=== PATIENT | male | born 1950 | race Caucasian/White ===

== ENCOUNTER 2017-12-12 15:26 | Emergency (ER) | payer OTHER, MEDICARE, BC ==
[2017-12-12 15:36] VITALS: BP 141/87
[2017-12-12] MEDS ORDERED: Diphtheria,Pertussis(Acell),Tetanus Vaccine 0.5 ML SDV IM ONE (16:04)
[2017-12-12] MEDS ORDERED: Lidocaine 1% 50 ML MDV INJECT ONE (16:04)
--- NOTE | 2017-12-12 16:46 | EDM.PDOC ---
ED HPI GENERAL MEDICAL PROBLEM - General Chief Complaint: General Stated Complaint: FALL, HEAD/KNEE INJURY Time Seen by Provider: 12/12/17 15:40 Source of Information: Reports: Patient, RN Notes Reviewed - History of Present Illness INITIAL COMMENTS - FREE TEXT/NARRATIVE: 67-year-old male tripped, they'll with resultant forehead laceration, contusion injury to his chest and contusion abrasion injury right knee. No LOC. Minimal headache at this time. There's been no nausea or vomiting. There was a fair amount of bleeding from the forehead laceration initially. He did mess up his glasses from a fall which probably caused the laceration. He does have anterior chest discomfort where he thinks the computer he was carrying a jammed against his chest. Pain was quite severe initially, now less bothersome but still present, worse with deep breathing. No abdominal pain no pelvic or hip discomfort. Mild right knee anterior discomfort. Chest Pain Score (Numeric/FACES): 8 - Related Data Allergies Allergy/AdvReac Type Severity Reaction Status Date / Time No Known Allergies Allergy Verified 12/12/17 15:35 Home Meds: Home Meds Insulin Isophane NPH, Human [NovoLIN N] 1 dose SUBCUT ASDIRECTED 12/12/17 [ History] Lisinopril 1 tab PO DAILY 12/12/17 [History] amLODIPine Besylate [Amlodipine Besylate] 1 tab PO DAILY 12/12/17 [History] glyBURIDE [Micronase] 1 tab PO DAILY 12/12/17 [History] metFORMIN HCl [Metformin HCl] 1 tab PO ASDIRECTED 12/12/17 [History] Past Medical History Cardiovascular History: Reports: Hypertension Endocrine/Metabolic History: Reports: Diabetes, Type II Social & Family History - Tobacco Use Smoking Status *Q: Never Smoker Second Hand Smoke Exposure: No - Caffeine Use Caffeine Use: Reports: Coffee, Soda - Recreational Drug Use Recreational Drug Use: No ED ROS GENERAL - Review of Systems Review Of Systems: See Below Constitutional: Reports: No Symptoms HEENT: Reports: Other (Laceration injury right for head). Denies: Vertigo, Vision Change Respiratory: Denies: Shortness of Breath Cardiovascular: Reports: Chest Pain (Worse with deep breathing) GI/Abdominal: Denies: Abdominal Pain, Nausea, Vomiting Musculoskeletal: Reports: Joint Pain (Right knee, mild) Skin: Reports: Other (Abrasion injury right knee) Neurological: Reports: Headache (Mild). Denies: Trouble Speaking, Difficulty Walking, Weakness ED EXAM, GENERAL - Physical Exam Exam: See Below General Appearance: Alert, No Apparent Distress Eye Exam: Bilateral Eye: PERRL Head: Facial Swelling (Area of contusion injury right eyebrow), Other (2 x 2 x 2 mm flap laceration just above right eyebrow, mildly gaping, moderately deep). No: Facial Tenderness Neck: Normal Inspection, Supple Respiratory/Chest: No Respiratory Distress, Lungs Clear Cardiovascular: Regular Rate, Rhythm Extremities: Other (Minimal tenderness right anterior knee, non-tender medially and laterally, good range of motion without discomfort, pelvis and hips nontender). No: Leg Pain Neurological: Alert, Oriented, No Motor/Sensory Deficits Skin Exam: Warm, Dry, Normal Color ED GENERAL MEDICAL PROCEDURES - Laceration/Wound Repair Right Forehead Lac/wound length in cm: 0.5 Appearance: Irregular (Flap configuration) Local Anesthesia - Lidocaine (Xylocaine): 1% Plain Skin Prep: Saline Suture Size: 4-0 # of Sutures: 1 Course - Vital Signs Last Recorded V/S: Last Vital Signs Temp 97.7 F 12/12/17 15:31 Pulse 77 12/12/17 15:31 Resp 18 12/12/17 15:31 BP 141/87 H 12/12/17 15:31 Pulse Ox 97 12/12/17 15:31 - Orders/Labs/Meds Orders: Active Orders 24 hr Category Date Time Status Vaccines to be Administered [RC] PER UNIT ROUTINE Care 12/12/17 16:04 Active Chest 1V Frontal [CR] Stat Exams 12/12/17 16:45 Taken Meds: Medications Discontinued Medications Generic Name Dose Route Start Last Admin Trade Name Freq PRN Reason Stop Dose Admin Diphtheria/Tetanus/Acell Pertussis 0.5 ml 12/12/17 16:04 12/12/17 16:16 Adacel IM 12/12/17 16:05 0.5 ml .ONCE ONE Administration Lidocaine HCl 50 ml 12/12/17 16:04 12/12/17 16:17 Xylocaine 1% INJECT 12/12/17 16:05 50 ml ONETIME ONE Administration - Re-Assessments/Exams Free Text/Narrative Re-Assessment/Exam: 12/12/17 17:43 Chest x-ray looks good, knee x-rays not clinically indicated, head CT not clinically indicated. Departure - Departure Time of Disposition: 17:04 Disposition: Home, Self-Care 01 Condition: Fair Clinical Impression: Fall Qualifiers: Encounter type: initial encounter Qualified Code(s): W19.XXXA - Unspecified fall, initial encounter Forehead laceration Qualifiers: Encounter type: initial encounter Qualified Code(s): S01.81XA - Laceration without foreign body of other part of head, initial encounter Knee contusion Qualifiers: Encounter type: initial encounter Laterality: right Qualified Code(s): S80.01XA - Contusion of right knee, initial encounter Chest wall contusion Qualifiers: Encounter type: initial encounter Laterality: unspecified laterality Qualified Code(s): S20.219A - Contusion of unspecified front wall of thorax, initial encounter - Discharge Information Instructions: Laceration Care, Adult, Contusion, [id number] Referrals: Raheel Vieyra Jr, MD [Primary Care Provider] - Forms: ED Department Discharge, ED Return to Work/School Form Additional Instructions: Laceration care instructions, the stitch placed for your forehead laceration should be removed in 8 days, there is no charge if you choose to have that taken out under [facility] medical clinic. Tylenol 2-3 times daily as needed for discomfort, you may take an occasional Aleve if you need something in addition for severe discomfort not relieved by Tylenol. Follow-up clinic as needed if symptoms not resolving over the next 3-5 days as expected, return to ED as needed if symptoms worsening in any way. - My Orders Last 24 Hours: My Active Orders 12/12/17 16:04 Vaccines to be Administered [RC] PER UNIT ROUTINE 12/12/17 16:45 Chest 1V Frontal [CR] Stat - Assessment/Plan Last 24 Hours: My Active Orders 12/12/17 16:04 Vaccines to be Administered [RC] PER UNIT ROUTINE 12/12/17 16:45 Chest 1V Frontal [CR] Stat
--- NOTE | 2017-12-13 10:22 | CR ---
Chest: Portable view of the chest was obtained. Comparison: Prior chest CT of 12/07/15 is available, no previous chest x-ray. Heart size and mediastinum are within normal limits for portable technique. Lungs are clear with no acute parenchymal densities. Bony structures are grossly intact. Impression: 1. Nothing acute is seen on portable chest x-ray. Diagnostic code #1
== END 2017-12-12 17:20 | disposition home or self-care (01) ==
LOC: JD.ED 15:26
DX: S01.81XA Laceration without foreign body of other part of head, initial encounter (principal); S80.01XA Contusion of right knee, initial encounter; S20.219A Contusion of unspecified front wall of thorax, initial encounter; Z23 Encounter for immunization; E11.9 Type 2 diabetes mellitus without complications; I10 Essential (primary) hypertension; Z79.4 Long term (current) use of insulin; W01.0XXA Fall on same level from slipping, tripping and stumbling without subsequent striking against object, initial encounter
CPT/HCPCS: 12011; 71045; 71045-26; 90471; 90715; 99283-25; 99284-25

== ENCOUNTER 2018-10-28 10:37 | Observation (INO) | payer MEDICARE, BC ==
--- NOTE | 2018-10-28 10:51 | EDM.PDOC ---
ED HPI GENERAL MEDICAL PROBLEM - General Chief Complaint: Neurological Problem Stated Complaint: POSSIBLE STROKE Time Seen by Provider: 10/28/18 10:41 - History of Present Illness INITIAL COMMENTS - FREE TEXT/NARRATIVE: 68-year-old male presents with right-sided weakness. This started roughly an hour ago his daughter noticed that the right side of his lips were drooping perhaps a little more than normal. Patient's agreed he has not had any change in speech or swallowing difficulties. The patient has had an upper respiratory tract infection from of last week on going and has a frequent cough with this and he's getting some abdominal and chest discomfort associated with the cough otherwise he has no chest pain or abdominal pain. After was pointed out that his right lips were a little more droopy than normal he thought maybe he had some right sided extremity weakness but this has resolved prior to him arriving here. 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 His back problems have caused him to have back surgeries and he may have some resultant neuropathy from this but it is felt he is at baseline at this time. The patient does suffer type 2 diabetes that he uses insulin for. He has a strong family history of CVAs some relatives have had strokes in their 50s. The patient has no prior history of smoking. Again is confirmed with the patient that he is having some mild right sided drooping of his lips no other residual symptoms at this time. Patient is left-hand dominant. - Related Data Allergies Allergy/AdvReac Type Severity Reaction Status Date / Time No Known Allergies Allergy Verified 10/28/18 11:04 Home Meds: Home Meds Insulin Isophane NPH, Human [NovoLIN N] 1 dose SUBCUT ASDIRECTED 12/12/17 [ History] Lisinopril 40 mg PO DAILY 12/12/17 [History] amLODIPine Besylate [Amlodipine Besylate] 10 mg PO DAILY 12/12/17 [History] glyBURIDE [Micronase] 5 mg PO DAILY 12/12/17 [History] metFORMIN HCl [Metformin HCl] 500 mg PO BID 12/12/17 [History] Clobetasol [Temovate 0.05% Oint] 1 applic TOP BID 10/28/18 [History] Terbinafine HCl [Terbinafine] 250 mg PO DAILY 10/28/18 [History] atorvaSTATin [Lipitor] 20 mg PO DAILY 10/28/18 [History] Past Medical History Cardiovascular History: Reports: Hypertension Endocrine/Metabolic History: Reports: Diabetes, Type II Social & Family History - Caffeine Use Caffeine Use: Reports: Coffee, Soda ED ROS GENERAL - Review of Systems Review Of Systems: See Below Constitutional: Denies: Fever, Chills HEENT: Reports: Other (Right-sided facial weakness affecting his lips) Respiratory: Reports: Cough, Sputum. Denies: Shortness of Breath, Wheezing, Pleuritic Chest Pain Cardiovascular: Reports: Other (Chest pain only with cough) Endocrine: Reports: High Glucose GI/Abdominal: Reports: No Symptoms, Other (Some abdominal wall discomfort with his cough) : Reports: No Symptoms Musculoskeletal: Reports: Other (Neck back and leg pain as well as arthritis affecting his upper extremities) Neurological: Reports: Other (Possible right-sided deficit) Psychiatric: Reports: No Symptoms Hematologic/Lymphatic: Reports: No Symptoms Immunologic: Reports: No Symptoms ED EXAM, NEURO - Physical Exam Exam: See Below Exam Limited By: No Limitations General Appearance: Alert, No Apparent Distress Eye Exam: Bilateral Eye: Normal Inspection, PERRL Ears: Normal External Exam, Normal Canal, Hearing Grossly Normal, Normal TMs Nose: Normal Inspection, Normal Mucosa, No Blood Throat/Mouth: Normal Inspection, Normal Lips, Normal Teeth, Normal Gums, Normal Oropharynx, Normal Voice, No Airway Compromise Head Exam: Atraumatic, Normocephalic, Other (He has a little bit of drooping of the lips on the right this is very subtle compared to the left patient's and daughter are certain this is new) Neck: Normal Inspection, Supple. No: Carotid Bruit, Lymphadenopathy (L), Lymphadenopathy (R) Respiratory/Chest: No Respiratory Distress, Lungs Clear, Normal Breath Sounds Cardiovascular: Regular Rate, Rhythm, No Edema, No Murmur GI/Abdominal: Normal Bowel Sounds, Soft, Non-Tender, Other (Obese). No: Distended, Guarding, Rigid, Rebound, Tender Neurological: Other (Cranial nerves II through XII grossly intact all muscle groups the upper and lower extremities are equal and appropriate bilaterally he might be a little bit stronger in his right arm compared to his left however he seems to have worsening arthritis in his left compared to his right) Back Exam: Normal Inspection. No: CVA Tenderness (L), CVA Tenderness (R) Extremities: Other (He is wearing orthopedic shoes on his feet this is for chronic ankle problems that of left to some deformity) Psychiatric: Normal Affect (.), Normal Mood Skin Exam: Warm, Dry, Intact EKG INTERPRETATION EKG Date: 10/28/18 Rhythm: NSR Rydal: Other (Leftward axis) P-Wave: Present QRS: RBBB ST-T: Normal QT: Normal Comparison: NA - No Prior EKG Course - Vital Signs Last Recorded V/S: Last Vital Signs Temp 36.6 C 10/28/18 10:40 Pulse 80 10/28/18 10:40 Resp 20 10/28/18 10:40 BP 137/82 10/28/18 10:40 Pulse Ox 95 10/28/18 10:40 - Orders/Labs/Meds Orders: Active Orders 24 hr Category Date Time Status EKG Documentation Completion [RC] STAT Care 10/28/18 11:00 Active URINALYSIS W/MICROSCOPIC [UA W/MICROSCOPIC] [URIN] Stat Lab 10/28/18 11:01 Ordered Sodium Chloride 0.9% [Normal Saline] 1,000 ml Med 10/28/18 12:00 Active IV ASDIRECTED Sodium Chloride 0.9% [Normal Saline] 100 ml Med 10/28/18 12:30 Active IV ASDIRECTED Sodium Chloride 0.9% [Saline Flush] Med 10/28/18 12:25 Active 10 ml FLUSH ONETIME PRN Medication Orders Sodium Chloride (Normal Saline) 1,000 mls @ 125 mls/hr IV ASDIRECTED DARA Sodium Chloride (Normal Saline) 100 mls @ 75 mls/hr IV ASDIRECTED DARA Last Admin: 10/28/18 13:50 Dose: 75 mls/hr Sodium Chloride (Saline Flush) 10 ml FLUSH ONETIME PRN PRN Reason: IV FLUSH Last Admin: 10/28/18 13:49 Dose: 10 ml Labs: Laboratory Tests 10/28/18 10/28/18 10/28/18 Range/Units 10:48 10:48 10:48 WBC 5.76 (4.23-9.07) K/mm3 RBC 4.59 L (4.63-6.08) M/mm3 Hgb 12.6 L D (13.7-17.5) gm/L Hct 38.4 L (40.1-51.0) % MCV 83.7 (79.0-92.2) fl MCH 27.5 (25.7-32.2) pg MCHC 32.8 (32.2-35.5) g/dl RDW Std Deviation 42.0 (35.1-43.9) fL Plt Count 239 (163-337) K/mm3 MPV 10.7 (9.4-12.3) fl Neutrophils % (Manual) 69 H (40-60) % Band Neutrophils % 0 (0-10) % Lymphocytes % (Manual) 19 L (20-40) % Atypical Lymphs % 0 % Monocytes % (Manual) 6 (2-10) % Eosinophils % (Manual) 6 (0.8-7.0) % Basophils % (Manual) 0 L (0.2-1.2) Platelet Estimate Adequate RBC Morph Comment Normal ESR (0-15) mm/hr PT 11.1 (9.5-12.1) SECONDS INR 1.02 APTT 28 (24-31) SECONDS Sodium 135 L (136-145) mEq/L Potassium 4.9 (3.5-5.1) mEq/L Chloride 101 (98-107) mEq/L Carbon Dioxide 26 (21-32) mEq/L Anion Gap 12.9 (5-15) BUN 19 H (7-18) mg/dL Creatinine 1.4 H (0.7-1.3) mg/dL Est Cr Clr Drug Dosing 53.89 mL/min Estimated GFR (MDRD) 50 (>60) mL/min BUN/Creatinine Ratio 13.6 L (14-18) Glucose 402 H (80-115) mg/dL Calcium 9.1 (8.5-10.1) mg/dL Total Bilirubin 0.5 (0.2-1.0) mg/dL AST 24 (15-37) U/L ALT 33 (16-63) U/L Alkaline Phosphatase 96 (46-116) U/L Troponin I < 0.017 (0.00-0.056) ng/mL C-Reactive Protein 0.7 (<1.0) mg/dL Total Protein 8.0 (6.4-8.2) g/dl Albumin 3.6 (3.4-5.0) g/dl Globulin 4.4 gm/dL Albumin/Globulin Ratio 0.8 L (1-2) 10/28/18 Range/Units 10:48 WBC (4.23-9.07) K/mm3 RBC (4.63-6.08) M/mm3 Hgb (13.7-17.5) gm/L Hct (40.1-51.0) % MCV (79.0-92.2) fl MCH (25.7-32.2) pg MCHC (32.2-35.5) g/dl RDW Std Deviation (35.1-43.9) fL Plt Count (163-337) K/mm3 MPV (9.4-12.3) fl Neutrophils % (Manual) (40-60) % Band Neutrophils % (0-10) % Lymphocytes % (Manual) (20-40) % Atypical Lymphs % % Monocytes % (Manual) (2-10) % Eosinophils % (Manual) (0.8-7.0) % Basophils % (Manual) (0.2-1.2) Platelet Estimate RBC Morph Comment ESR 34 H (0-15) mm/hr PT (9.5-12.1) SECONDS INR APTT (24-31) SECONDS Sodium (136-145) mEq/L Potassium (3.5-5.1) mEq/L Chloride (98-107) mEq/L Carbon Dioxide (21-32) mEq/L Anion Gap (5-15) BUN (7-18) mg/dL Creatinine (0.7-1.3) mg/dL Est Cr Clr Drug Dosing mL/min Estimated GFR (MDRD) (>60) mL/min BUN/Creatinine Ratio (14-18) Glucose (80-115) mg/dL Calcium (8.5-10.1) mg/dL Total Bilirubin (0.2-1.0) mg/dL AST (15-37) U/L ALT (16-63) U/L Alkaline Phosphatase (46-116) U/L Troponin I (0.00-0.056) ng/mL C-Reactive Protein (<1.0) mg/dL Total Protein (6.4-8.2) g/dl Albumin (3.4-5.0) g/dl Globulin gm/dL Albumin/Globulin Ratio (1-2) Meds: Medications Generic Name Dose Route Start Last Admin Trade Name Freq PRN Reason Stop Dose Admin Sodium Chloride 1,000 mls @ 125 mls/hr 10/28/18 12:00 Normal Saline IV ASDIRECTED DARA Sodium Chloride 100 mls @ 75 mls/hr 10/28/18 12:30 10/28/18 13:50 Normal Saline IV 75 mls/hr ASDIRECTED DARA Administration Sodium Chloride 10 ml 10/28/18 12:25 10/28/18 13:49 Saline Flush FLUSH 10 ml ONETIME PRN Administration IV FLUSH Discontinued Medications Generic Name Dose Route Start Last Admin Trade Name Naelq PRN Reason Stop Dose Admin Aspirin 324 mg 10/28/18 11:17 10/28/18 11:22 Aspirin PO 10/28/18 11:18 324 mg ONETIME ONE Administration Sodium Chloride 500 mls @ 999 mls/hr 10/28/18 12:00 10/28/18 12:09 Normal Saline IV 10/28/18 12:30 999 mls/hr .BOLUS ONE Administration Iohexol 100 ml 10/28/18 12:26 10/28/18 13:49 Omnipaque-300 IVPUSH 10/28/18 12:27 100 ml ONETIME ONE Administration - Re-Assessments/Exams Free Text/Narrative Re-Assessment/Exam: 10/28/18 11:[address] 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. He agrees he is not a thrombolytic candidate. He should have an echo CTA in addition to the usual workup EKG shows a sinus rhythm. Discussed potential treatment options with the patient and his family. 10/28/18 14:24 The patient received IV fluids to buffer his kidneys from contrast he received a CTA of the head and neck which shows 80-90% focal stenosis in the distal right vertebral artery. Patient will be placed on observation started on antiplatelet therapy receive brain MRI cardiac echo and cardiac monitoring. His metformin will need to be held. Departure - Departure Time of Disposition: 14:01 Disposition: Refer to Observation Clinical Impression: Transient ischemic attack (TIA) - Discharge Information Referrals: Raheel Vieyra Jr, MD [Primary Care Provider] - Forms: ED Department Discharge - My Orders Last 24 Hours: My Active Orders 10/28/18 11:00 EKG Documentation Completion [RC] STAT 10/28/18 11:01 URINALYSIS W/MICROSCOPIC [UA W/MICROSCOPIC] [URIN] Stat 10/28/18 12:00 Sodium Chloride 0.9% [Normal Saline] 1,000 ml IV ASDIRECTED 10/28/18 12:25 Sodium Chloride 0.9% [Saline Flush] 10 ml FLUSH ONETIME PRN 10/28/18 12:30 Sodium Chloride 0.9% [Normal Saline] 100 ml IV ASDIRECTED - Assessment/Plan Last 24 Hours: My Active Orders 10/28/18 11:00 EKG Documentation Completion [RC] STAT 10/28/18 11:01 URINALYSIS W/MICROSCOPIC [UA W/MICROSCOPIC] [URIN] Stat 10/28/18 12:00 Sodium Chloride 0.9% [Normal Saline] 1,000 ml IV ASDIRECTED 10/28/18 12:25 Sodium Chloride 0.9% [Saline Flush] 10 ml FLUSH ONETIME PRN 10/28/18 12:30 Sodium Chloride 0.9% [Normal Saline] 100 ml IV ASDIRECTED
[2018-10-28] MEDS ORDERED: Aspirin 81 MG Tab.Chew PO ONE (11:17)
--- NOTE | 2018-10-28 11:43 | CR ---
Chest: Two views of the chest were obtained. Comparison: Previous chest x-ray of 12/12/17. Heart size is normal. Tortuous thoracic aorta is seen. Lungs are clear with no acute parenchymal change. Minimal scarring is seen within the left lung base. Bony structures show scattered degenerative endplate spurring within the spine. Impression: 1. Incidental findings. Nothing acute is seen. Diagnostic code #2
[2018-10-28] MEDS ORDERED: Sodium Chloride 0.9% 1,000 ML IV SCH (12:00)
[2018-10-28] MEDS ORDERED: Sodium Chloride 0.9% 500 ML IV ONE (12:00)
[2018-10-28] MEDS ORDERED: Sodium Chloride 0.9% 10 ML Syringe FLUSH PRN ×2 (12:25→16:54)
[2018-10-28] MEDS ORDERED: Iohexol 647 MG/ML 100 ML Bottle IVPUSH ONE (12:26)
[2018-10-28] MEDS ORDERED: Sodium Chloride 0.9% 100 ML IV SCH (12:30)
--- NOTE | 2018-10-28 12:45 | CT ---
Head CT Technique: Multiple axial sections through the brain were obtained. Intravenous contrast was not utilized. Comparison: No prior intracranial imaging. Findings: Ventricles along with basal cisterns and sulci over the convexities are mildly prominent. Minimal diminished density is noted within the periventricular white matter which is compatible with small vessel ischemic demyelination change. No other abnormal parenchymal densities are seen. No evidence of intracranial hemorrhage. No midline shift or mass effect is seen. Bone window settings were reviewed which show no acute calvarial abnormality. Minimal areas of mucosal thickening are seen within the maxillary sinuses which is incidental. Widening of the sella turcica is seen most likely due to so- called empty sella. Impression: 1. Senescent change and other incidental findings. 2. Nothing acute is appreciated. If patient's symptoms warrant further evaluation, MRI could then be considered. Diagnostic code #2 MTDD
--- NOTE | 2018-10-28 14:16 | CT ---
CT angiogram of neck Technique: Multiple axial sections through the neck were obtained. Intravenous contrast was utilized in the arterial phase. Multiple MIP images were obtained. Findings: Two focal areas of severe stenosis are noted within the distal right vertebral artery. These measure in the range of 80-90%. Left vertebral artery is widely patent without focal stenosis. Other portions of the vertebral arteries appear normal. Common carotid artery showed no stenosis on either side. Carotid bulb shows no significant stenosis. Internal carotid artery showed no focal stenosis. Visualized external carotid arteries are within normal limits. Impression: 1. Two areas of severe stenosis within the distal right vertebral artery. 2. No additional abnormality is identified on CT study of the neck. Diagnostic code #3
--- NOTE | 2018-10-28 14:16 | CT ---
CT angiogram of brain Technique: Focal stenosis is noted within the distal right vertebral artery measuring about 80-90%. Distal left vertebral artery is widely patent. Basilar artery and posterior cerebral arteries appear intact without focal stenosis. Carotid siphons appear intact. Middle cerebral arteries show minimal stenosis within the distal right MCA. Left MCA shows no focal stenosis. Anterior cerebral artery shows no focal stenosis. Impression: 1. Focal stenosis within the distal right vertebral artery measuring 80-90%. 2. Minimal stenosis within the distal right middle cerebral artery. 3. No additional abnormality is seen on CT angiogram study centered to the [place] of [place]. Diagnostic code #3
--- NOTE | 2018-10-28 14:52 | PCM.HP ---
H&P History of Present Illness - General Date of Service: 10/28/18 Admit Problem/Dx: Admission Diagnosis/Problem Admission Diagnosis/Problem TIA, Transient ischemic attack - History of Present Illness Initial Comments - Free Text/Narative: 68 yo WM with h/o DM, HTN, dyslipidemia, strong family h/o early strokes admitted with acute onset of right facial motor deficit, which gradually resolved while in ED. CT angiogram showed significant stenoses in major arteries : vertebral and carotid, started on DAPT, admitted for observation to further risk stratify and treat. - Related Data Allergies/Adverse Reactions: Allergies Allergy/AdvReac Type Severity Reaction Status Date / Time No Known Allergies Allergy Verified 10/28/18 11:04 Home Medications: Home Meds Insulin Isophane NPH, Human [NovoLIN N] 1 dose SUBCUT ASDIRECTED 12/12/17 [ History] Lisinopril 40 mg PO DAILY 12/12/17 [History] amLODIPine Besylate [Amlodipine Besylate] 10 mg PO DAILY 12/12/17 [History] glyBURIDE [Micronase] 5 mg PO DAILY 12/12/17 [History] metFORMIN HCl [Metformin HCl] 500 mg PO BID 12/12/17 [History] Clobetasol [Temovate 0.05% Oint] 1 applic TOP BID 10/28/18 [History] Terbinafine HCl [Terbinafine] 250 mg PO DAILY 10/28/18 [History] atorvaSTATin [Lipitor] 20 mg PO DAILY 10/28/18 [History] Past Medical History Cardiovascular History: Reports: Hypertension Endocrine/Metabolic History: Reports: Diabetes, Type II Social & Family History - Tobacco Use Smoking Status *Q: Unknown Ever Smoked - Caffeine Use Caffeine Use: Reports: Coffee, Soda H&P Review of Systems - Review of Systems: Review Of Systems: See Below General: Reports: Chills. Denies: Fever, Weight Loss HEENT: Reports: Sinus Congestion. Denies: Dysphasia, Vertigo Pulmonary: Reports: Cough. Denies: Shortness of Breath, Wheezing Cardiovascular: Reports: Orthopnea, Blood Pressure Problem. Denies: Chest Pain , Palpitations, Syncope Gastrointestinal: Denies: Abdominal Pain, Anorexia, Diarrhea, Difficulty Swallowing, Nausea, Vomiting Genitourinary: Denies: Dysuria Skin: Denies: Cyanosis, Jaundice, Bruising Psychiatric: Denies: Confusion, Depression, Anxiety, Suicidal Ideation Neurological: Denies: Seizure, Syncope Hematologic/Lymphatic: Denies: Easy Bleeding, Easy Bruising Exam - Exam Exam: See Below - Vital Signs Vital Signs: Last Vital Signs Temp 97.9 F 10/28/18 10:40 Pulse 80 10/28/18 10:40 Resp 20 10/28/18 10:40 BP 137/82 10/28/18 10:40 Pulse Ox 95 10/28/18 10:40 Weight: 275 lb - Exam Quality Assessment: No: Supplemental Oxygen General: Alert, Oriented, Cooperative HEENT: Conjunctiva Clear, EOMI, Hearing Intact, Pupils Equal Neck: Supple, Trachea Midline. No: JVD Lungs: Clear to Auscultation, Normal Respiratory Effort, Crackles. No: Decreased Breath Sounds Cardiovascular: Regular Rate, Regular Rhythm, Normal S1, Normal S2. No: Gallop/ S3 GI/Abdominal Exam: Normal Bowel Sounds, Soft, Non-Tender, No Distention Extremities: Non-Tender, Pedal Edema, Other (congenital bilateral feet deformities.) Peripheral Pulses: 2+: Posterior Tibial (L), Posterior Tibial (R) Skin: Warm, Dry Neurological: Cranial Nerves Intact Neuro Extensive - Mental Status: Alert, Oriented x3 Neuro Extensive - Motor, Sensory, Reflexes: CN II-XII Intact. No: Tongue Deviation (L), Tongue Deviation (R), Dysarthria, Facial palsy (L), Facial Palsy (R) Psychiatric: Normal Affect, Normal Mood. No: Suicidal Ideation - Patient Data Lab Results Last 24 hrs: Laboratory Results - last 24 hr 10/28/18 10/28/18 10/28/18 Range/Units 10:48 10:48 10:48 WBC 5.76 (4.23-9.07) K/mm3 RBC 4.59 L (4.63-6.08) M/mm3 Hgb 12.6 L D (13.7-17.5) gm/L Hct 38.4 L (40.1-51.0) % MCV 83.7 (79.0-92.2) fl MCH 27.5 (25.7-32.2) pg MCHC 32.8 (32.2-35.5) g/dl RDW Std Deviation 42.0 (35.1-43.9) fL Plt Count 239 (163-337) K/mm3 MPV 10.7 (9.4-12.3) fl Neutrophils % (Manual) 69 H (40-60) % Band Neutrophils % 0 (0-10) % Lymphocytes % (Manual) 19 L (20-40) % Atypical Lymphs % 0 % Monocytes % (Manual) 6 (2-10) % Eosinophils % (Manual) 6 (0.8-7.0) % Basophils % (Manual) 0 L (0.2-1.2) Platelet Estimate Adequate RBC Morph Comment Normal ESR (0-15) mm/hr PT 11.1 (9.5-12.1) SECONDS INR 1.02 APTT 28 (24-31) SECONDS Sodium 135 L (136-145) mEq/L Potassium 4.9 (3.5-5.1) mEq/L Chloride 101 (98-107) mEq/L Carbon Dioxide 26 (21-32) mEq/L Anion Gap 12.9 (5-15) BUN 19 H (7-18) mg/dL Creatinine 1.4 H (0.7-1.3) mg/dL Est Cr Clr Drug Dosing 53.89 mL/min Estimated GFR (MDRD) 50 (>60) mL/min BUN/Creatinine Ratio 13.6 L (14-18) Glucose 402 H (80-115) mg/dL Calcium 9.1 (8.5-10.1) mg/dL Total Bilirubin 0.5 (0.2-1.0) mg/dL AST 24 (15-37) U/L ALT 33 (16-63) U/L Alkaline Phosphatase 96 (46-116) U/L Troponin I < 0.017 (0.00-0.056) ng/mL C-Reactive Protein 0.7 (<1.0) mg/dL Total Protein 8.0 (6.4-8.2) g/dl Albumin 3.6 (3.4-5.0) g/dl Globulin 4.4 gm/dL Albumin/Globulin Ratio 0.8 L (1-2) // Range/Units 10:48 WBC (4.23-9.07) K/mm3 RBC (4.63-6.08) M/mm3 Hgb (13.7-17.5) gm/L Hct (40.1-51.0) % MCV (79.0-92.2) fl MCH (25.7-32.2) pg MCHC (32.2-35.5) g/dl RDW Std Deviation (35.1-43.9) fL Plt Count (163-337) K/mm3 MPV (9.4-12.3) fl Neutrophils % (Manual) (40-60) % Band Neutrophils % (0-10) % Lymphocytes % (Manual) (20-40) % Atypical Lymphs % % Monocytes % (Manual) (2-10) % Eosinophils % (Manual) (0.8-7.0) % Basophils % (Manual) (0.2-1.2) Platelet Estimate RBC Morph Comment ESR 34 H (0-15) mm/hr PT (9.5-12.1) SECONDS INR APTT (24-31) SECONDS Sodium (136-145) mEq/L Potassium (3.5-5.1) mEq/L Chloride (98-107) mEq/L Carbon Dioxide (21-32) mEq/L Anion Gap (5-15) BUN (7-18) mg/dL Creatinine (0.7-1.3) mg/dL Est Cr Clr Drug Dosing mL/min Estimated GFR (MDRD) (>60) mL/min BUN/Creatinine Ratio (14-18) Glucose (80-115) mg/dL Calcium (8.5-10.1) mg/dL Total Bilirubin (0.2-1.0) mg/dL AST (15-37) U/L ALT (16-63) U/L Alkaline Phosphatase (46-116) U/L Troponin I (0.00-0.056) ng/mL C-Reactive Protein (<1.0) mg/dL Total Protein (6.4-8.2) g/dl Albumin (3.4-5.0) g/dl Globulin gm/dL Albumin/Globulin Ratio (1-2) Result Diagrams: 10/28/18 10:48 10/28/18 10:48 - Problem List (1) TIA (transient ischemic attack) SNOMED Code(s): 422448636 ICD Code: G45.9 - TRANSIENT CEREBRAL ISCHEMIC ATTACK, UNSPECIFIED Status: Acute Priority: High Current Visit: Yes (2) Diabetes mellitus SNOMED Code(s): 44969709 ICD Code: E11.9 - TYPE 2 DIABETES MELLITUS WITHOUT COMPLICATIONS Status: Acute Priority: High Current Visit: Yes Qualifiers: Diabetes mellitus type: type 2 Diabetes mellitus skilled nursing insulin use: with skilled nursing use Diabetes mellitus complication status: with unspecified complications Qualified Code(s): E11.8 - Type 2 diabetes mellitus with unspecified complications; Z79.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 (3) Essential hypertension SNOMED Code(s): 97612647 ICD Code: I10 - ESSENTIAL (PRIMARY) HYPERTENSION Status: Acute Priority: High Current Visit: Yes Problem List Initiated/Reviewed/Updated: Yes Orders Last 24hrs: Active Orders 24 hr Category Date Time Status Patient Status [ADT] Routine ADT 10/28/18 14:35 Active EKG Documentation Completion [RC] STAT Care 10/28/18 11:00 Active Height and Weight [RC] DAILY Care 10/28/18 14:35 Active Oxygen Therapy [RC] PRN Care 10/28/18 14:35 Active Up With Assistance [RC] ASDIRECTED Care 10/28/18 14:35 Active VTE/DVT Education [RC] PER UNIT ROUTINE Care 10/28/18 14:35 Active Vital Signs [RC] Q4H Care 10/28/18 14:35 Active Heart Healthy Diet [DIET] Diet 10/28/18 Dinner Active Brain wo Cont [MR] Routine Exams 10/28/18 14:46 Ordered Carotid Comp [US] Routine Exams 10/28/18 14:43 Ordered Echo Comp wo Cont [US] Routine Exams 10/28/18 14:44 Ordered CBC WITH AUTO DIFF [HEME] AM Lab 10/29/18 05:11 Ordered COMPREHENSIVE METABOLIC PN,CMP [CHEM] AM Lab 10/29/18 05:11 Ordered CREATINE KINASE,CK [CHEM] AM Lab 10/29/18 05:11 Ordered GLYCOSYLATED HEMOGLOBIN,HGBA1C [CHEM] AM Lab 10/29/18 05:11 Ordered INR,PT,PROTHROMBIN TIME [COAG] AM Lab 10/29/18 05:11 Ordered LIPID PANEL [CHEM] AM Lab 10/29/18 05:11 Ordered MAGNESIUM [CHEM] AM Lab 10/29/18 05:00 Ordered PHOSPHORUS [CHEM] AM Lab 10/29/18 05:00 Ordered PTT,PARTIAL THROMBOPLSTIN TIME [COAG] AM Lab 10/29/18 05:11 Ordered TROPONIN I [CHEM] AM Lab 10/29/18 05:11 Ordered URINALYSIS W/MICROSCOPIC [UA W/MICROSCOPIC] [URIN] Stat Lab 10/28/18 11:01 Ordered Aspirin Med 10/29/18 09:00 Active 162 mg PO DAILY Clopidogrel [Plavix] Med 10/28/18 14:45 Active 75 mg PO DAILY Enoxaparin [Lovenox] Med 10/28/18 15:30 Active 40 mg SUBCUT Q24H Insulin Lispro [HumaLOG] Med 10/28/18 17:00 Active See Protocol SUBCUT QIDACANDBED Lisinopril [Prinivil] Med 10/29/18 09:00 Active 40 mg PO DAILY Simvastatin [Zocor] Med 10/29/18 09:00 Active 20 mg PO DAILY Sodium Chloride 0.9% [Normal Saline] 1,000 ml Med 10/28/18 12:00 Active IV ASDIRECTED Sodium Chloride 0.9% [Normal Saline] 100 ml Med 10/28/18 12:30 Active IV ASDIRECTED Sodium Chloride 0.9% [Saline Flush] Med 10/28/18 12:25 Active 10 ml FLUSH ONETIME PRN amLODIPine [Norvasc] Med 10/29/18 09:00 Active 10 mg PO DAILY Resuscitation Status Routine Resus Stat 10/28/18 14:35 Ordered Medication Orders Amlodipine Besylate (Norvasc) 10 mg PO DAILY [facility] Aspirin (Aspirin) 162 mg PO DAILY [facility] Clopidogrel Bisulfate (Plavix) 75 mg PO DAILY [facility] Enoxaparin Sodium (Lovenox) 40 mg SUBCUT Q24H [facility]ARA Sodium Chloride (Normal Saline) 1,000 mls @ 125 mls/hr IV ASDIRECTED DARA Sodium Chloride (Normal Saline) 100 mls @ 75 mls/hr IV ASDIRECTED DARA Last Admin: 10/28/18 13:50 Dose: 75 mls/hr Insulin Human Lispro (Humalog) 0 unit SUBCUT QIDACANDBED DARA; Protocol Lisinopril (Prinivil) 40 mg PO DAILY [facility]ARA Simvastatin (Zocor) 20 mg PO DAILY [facility] Sodium Chloride (Saline Flush) 10 ml FLUSH ONETIME PRN PRN Reason: IV FLUSH Last Admin: 10/28/18 13:49 Dose: 10 ml Assessment/Plan Comment:: 1. MRI, 2D ECHO. 2. Lipid panel, HbA1C 3. started dual antiplatelet therapy(ASA, clopidogrel) 4. DVTP - LMWH
[2018-10-28] MEDS ORDERED: Enoxaparin 40 MG/0.4 ML Syringe SUBCUT SCH (15:30)
[2018-10-28] MEDS: Clopidogrel 75 MG Tab PO SCH (17:22)
[2018-10-28] MEDS: Insulin Lispro 100 Units/ML 3 ML Vial SUBCUT SCH ×2 (17:23→21:45)
[2018-10-29 07:01] LABS: HEMOGLOBIN A1C 9.2 % (4.50-6.20)
[2018-10-29] MEDS: Insulin Lispro 100 Units/ML 3 ML Vial SUBCUT SCH ×2 (08:02→10:57)
[2018-10-29] MEDS: Clopidogrel 75 MG Tab PO SCH (08:12)
--- NOTE | 2018-10-29 08:28 | US ---
Carotid ultrasound: Multiple real-time images were obtained. Plaque: No plaque is seen. Comparison: No prior carotid ultrasound, prior neck CT angiogram of 10/28/18. Findings: Velocity measurements: Right side: CCA has a peak systolic velocity of 0.68 m/s. ICA has a peak systolic velocity of 0.71 m/s and peak end-diastolic velocity of 0.26 m/s. ECA has a peak systolic velocity of 0.64 m/s. Vertebral artery has a peak systolic velocity of 0.72 m/s. ICA/CCA ratio is 1.0. Left side: CCA has a peak systolic velocity of 0.71 m/s. ICA has a peak systolic velocity of 0.62 m/s and peak end-diastolic velocity of 0.22 m/s. ECA has a peak systolic velocity of 0.46 m/s. Vertebral artery has a peak systolic velocity of 0.55 m/s. ICA/CCA ratio is 0.9. Impression: 1. Normal carotid ultrasound. Note: Distal right vertebral artery stenosis seen on CT angiogram study is too distal to be visualized by this study. Diagnostic code #1 I agree with preliminary report from [facility], finalized on 10/28/18, 6:07 PM Central Time
--- NOTE | 2018-10-29 08:50 | MR ---
MRI brain Technique: T1 sagittal; T2, T1, T2 FLAIR, T2 gradient echo and diffusion; T1 and T2 gradient echo coronal. Comparison: Prior head CT exam at 10/28/18. Findings: Normal signal void is seen within the major cerebral arteries within the skull base. Enlarged sella turcica is seen believed to represent so-called empty sella as an incidental note. Ventricles along with basal cisterns and sulci over the convexities are mildly prominent. Mild areas of scattered increased signal are seen within the periventricular and subcortical white matter compatible with small vessel ischemic demyelination change. No other abnormal signal is seen within the brain parenchyma. No acute diffusion abnormalities are seen. No midline shift or mass effect is seen. Impression: 1. Senescent changes and other incidental finding. 2. No acute diffusion abnormalities are identified. Diagnostic code #2 I agree with preliminary report from [facility], finalized on 10/28/18, 5:04 PM Central Time
[2018-10-29] MEDS ORDERED: amLODIPine 10 MG Tab PO SCH (09:00)
[2018-10-29] MEDS ORDERED: Aspirin 81 MG Tab.Chew PO SCH (09:00)
[2018-10-29] MEDS ORDERED: Lisinopril 20 MG Tab PO SCH (09:00)
[2018-10-29] MEDS ORDERED: ATORVASTATIN 20 MG PO SCH (09:00)
[2018-10-29] MEDS ORDERED: AMLODIPINE 10 MG PO SCH (09:00)
[2018-10-29] MEDS ORDERED: amLODIPine 5 MG Tab PO SCH (09:00)
[2018-10-29] MEDS ORDERED: LISINOPRIL 40 MG PO SCH (09:00)
[2018-10-29] MEDS ORDERED: Simvastatin 20 MG Tab PO SCH (09:00)
[2018-10-29] MEDS ORDERED: Non-Formulary Medication 1 Each (Magnesium Citrate [Magnesium Citrate] 100 MG) PO SCH (09:15)
[2018-10-29] MEDS ORDERED: Magnesium Sulfate/Water 4 GM in Premix Bag 1 BAG IV ONE (09:30)
[2018-10-29 12:41] VITALS: BP 133/62
--- NOTE | 2018-10-29 15:02 | PCM.DCSUM1 ---
Discharge Summary - Hospital Course HPI Initial Comments: 68 yo WM with h/o DM, HTN, dyslipidemia, strong family h/o early strokes admitted with acute onset of right facial motor deficit, which gradually resolved while in ED. CT angiogram showed significant stenoses in major arteries : vertebral and carotid, started on DAPT, admitted for observation to further risk stratify and treat. Brief History: patient had an uneventful 24 hours and had full resolution of his right-sided weakness. Patient was evaluated by physical therapy and occupational therapy. He had an ultrasound of his heart arteries which showed no velocity abnormalities. Echocardiogram is still pending. MRI of the brain was negative for acute findings. Diagnosis: Stroke: No - Discharge Data Discharge Date: 10/29/18 Discharge Disposition: Home, Self-Care 01 Condition: Good - Patient Summary/Data Consults: Consultations 10/29/18 07:40 OT Evaluation and Treatment [CONS] Routine PT Evaluation and Treatment [CONS] Routine - Discharge Plan *PRESCRIPTION DRUG MONITORING PROGRAM REVIEWED*: Not Applicable *COPY OF PRESCRIPTION DRUG MONITORING REPORT IN PATIENT ZOEY: Not Applicable Prescriptions/Med Rec: Clopidogrel [Plavix] 75 mg PO DAILY #30 tablet Home Medications: Home Meds Insulin Isophane NPH, Human [NovoLIN N] 25 unit SUBCUT BIDMEALS 12/12/17 [ History] Lisinopril 40 mg PO DAILY 12/12/17 [History] amLODIPine Besylate [Amlodipine Besylate] 5 mg PO DAILY 12/12/17 [History] glyBURIDE [Micronase] 10 mg PO ACBREAKFAST 12/12/17 [History] metFORMIN HCl [Metformin HCl] 500 mg PO BID 12/12/17 [History] Ceramides 1,3,6-11 [Cerave] 340 gm TP BID 10/28/18 [History] Cider Vinegar [Apple Cider Vinegar] 300 mg PO DAILY 10/28/18 [History] Cinnamon Bark [Cinnamon] 500 mg PO DAILY 10/28/18 [History] Clobetasol [Temovate 0.05% Oint] 1 applic TOP BID 10/28/18 [History] Folic Acid 1 mg PO DAILY 10/28/18 [History] Magnesium Citrate 0 mg PO DAILY 10/28/18 [History] Metoprolol Tartrate 50 mg PO DAILY 10/28/18 [History] Niacin 500 mg PO DAILY 10/28/18 [History] Omeprazole 20 mg PO DAILY 10/28/18 [History] [place] 1,000 mg PO DAILY 10/28/18 [History] atorvaSTATin [Lipitor] 20 mg PO DAILY 10/28/18 [History] glyBURIDE [Glyburide] 5 mg PO ACDINNER 10/28/18 [History] Aspirin 162 mg PO DAILY tab.chew 10/29/18 [Rx] Clopidogrel [Plavix] 75 mg PO DAILY #30 tablet 10/29/18 [Rx] Patient Handouts: Stroke Prevention, Transient Ischemic Attack, [id number], Warning Signs of a Stroke Referrals: Raheel Vieyra Jr, MD [Primary Care Provider] - 11/03/18 2:00 pm (Please follow up with Dr. Vieyra on SatNovember 05 at 2pm.) - Discharge Summary/Plan Comment DC Time >30 min.: Yes Discharge Summary/Plan Comment: patient had complete resolution of his right-sided weakness. 68 yo WM with h/o DM, HTN, dyslipidemia, strong family h/o early strokes admitted with acute onset of right facial motor deficit, which gradually resolved while in ED. CT angiogram showed significant stenoses in major arteries : vertebral and carotid, started on DAPT, admitted for observation to further risk stratify and treat. CT angiogram of the head: 1. Focal stenosis within the distal right vertebral artery measuring 80-90%. 2. Minimal stenosis within the distal right middle cerebral artery. MRI brain: No acute diffusion abnormality identified. Senescent changes and other incidental findings. Echocardiogram pending Carotid ultrasound normal. continue tight blood pressure control. Improve Blood sugar control. Hemoglobin A1c was 9.0 discharged on dual antiplatelet therapy: aspirin 162 mg daily and Plavix 75 mg daily. Follow-up with primary care provider in one week. - General Info Date of Service: 10/29/18 Admission Dx/Problem (Free Text: Admission Diagnosis/Problem Admission Diagnosis/Problem TIA, Transient ischemic attack Subjective Update: patient had no changes overnight. He did well and has completely recovered from his right-sided weakness. CT angiogram did show severe stenosis of the right vertebral arteries. I discussed with him following up with vascular surgery. - Review of Systems General: Reports: No Symptoms. Denies: Fever, Weakness HEENT: Reports: No Symptoms Pulmonary: Reports: No Symptoms. Denies: Shortness of Breath, Pleuritic Chest Pain Cardiovascular: Reports: No Symptoms. Denies: Chest Pain, Palpitations Gastrointestinal: Reports: No Symptoms. Denies: Abdominal Pain Genitourinary: Reports: No Symptoms. Denies: Dysuria, Frequency Musculoskeletal: Reports: No Symptoms. Denies: Neck Pain, Shoulder Pain Neurological: Reports: No Symptoms. Denies: Confusion, Dizziness, Numbness, Paresthesia, Seizure, Difficulty Walking, Weakness, Change in Speech, Gait Disturbance Psychiatric: Reports: No Symptoms - Patient Data Vitals - Most Recent: Last Vital Signs Temp 97.4 F 10/29/18 08:00 Pulse 87 10/29/18 11:25 Resp 16 10/29/18 11:25 BP 133/62 10/29/18 11:25 Pulse Ox 95 10/29/18 11:25 Weight - Most Recent: 266 lb I&O - Last 24 hours: Intake & Output 10/29/18 10/29/18 10/29/18 06:59 14:59 22:59 Intake Total 400 480 Output Total 1350 Balance -950 480 Lab Results - Last 24 hrs: Laboratory Results - last 24 hr 10/28/18 10/28/18 10/28/18 Range/Units 14:45 17:03 20:50 WBC (4.23-9.07) K/mm3 RBC (4.63-6.08) M/mm3 Hgb (13.7-17.5) gm/L Hct (40.1-51.0) % MCV (79.0-92.2) fl MCH (25.7-32.2) pg MCHC (32.2-35.5) g/dl RDW Std Deviation (35.1-43.9) fL Plt Count (163-337) K/mm3 MPV (9.4-12.3) fl Neut % (Auto) (34.0-67.9) % Lymph % (Auto) (21.8-53.1) % [place] % (Auto) (5.3-12.2) % Eos % (Auto) (0.8-7.0) Baso % (Auto) (0.1-1.2) % Neut # (Auto) (1.78-5.38) K/mm3 Lymph # (Auto) (1.32-3.57) K/mm3 [place] # (Auto) (0.30-0.82) K/mm3 Eos # (Auto) (0.04-0.54) K/mm3 Baso # (Auto) (0.01-0.08) K/mm3 PT (9.5-12.1) SECONDS INR APTT (24-31) SECONDS Sodium (136-145) mEq/L Potassium (3.5-5.1) mEq/L Chloride (98-107) mEq/L Carbon Dioxide (21-32) mEq/L Anion Gap (5-15) BUN (7-18) mg/dL Creatinine (0.7-1.3) mg/dL Est Cr Clr Drug Dosing mL/min Estimated GFR (MDRD) (>60) mL/min BUN/Creatinine Ratio (14-18) Glucose (80-115) mg/dL POC Glucose 287 H 226 H (80-115) mg/dL Hemoglobin A1c (4.50-6.20) % Calcium (8.5-10.1) mg/dL Phosphorus (2.6-4.7) mg/dL Magnesium (1.8-2.4) mg/dl Total Bilirubin (0.2-1.0) mg/dL AST (15-37) U/L ALT (16-63) U/L Alkaline Phosphatase (46-116) U/L Creatine Kinase (39-308) U/L Troponin I (0.00-0.056) ng/mL Total Protein (6.4-8.2) g/dl Albumin (3.4-5.0) g/dl Globulin gm/dL Albumin/Globulin Ratio (1-2) Triglycerides (<150) mg/dL Cholesterol (<200) mg/dL LDL Cholesterol Direct (<100) mg/dL HDL Cholesterol (40-59) mg/dL Urine Color Light yellow (Yellow) Urine Appearance Clear (Clear) Urine pH 5.5 (5.0-8.0) Ur Specific [place] 1.015 (1.005-1.030) Urine Protein Negative (Negative) Urine Glucose (UA) 2+ H (Negative) Urine Ketones Negative (Negative) Urine Occult Blood Negative (Negative) Urine Nitrite Negative (Negative) Urine Bilirubin Negative (Negative) Urine Urobilinogen 0.2 (0.2-1.0) Ur Leukocyte Esterase Negative (Negative) Urine RBC Not seen (0-5) /hpf Urine WBC 0-5 (0-5) /hpf Ur Squamous Epith Cells Not seen (0-5) /hpf Urine Bacteria Not seen (FEW) /hpf Urine Mucus Not seen (FEW) /hpf 10/29/18 10/29/18 10/29/18 Range/Units 05:38 05:39 05:39 WBC 5.62 (4.23-9.07) K/mm3 RBC 4.15 L (4.63-6.08) M/mm3 Hgb 11.5 L (13.7-17.5) gm/L Hct 35.5 L (40.1-51.0) % MCV 85.5 (79.0-92.2) fl MCH 27.7 (25.7-32.2) pg MCHC 32.4 (32.2-35.5) g/dl RDW Std Deviation 42.0 (35.1-43.9) fL Plt Count 179 (163-337) K/mm3 MPV 10.8 (9.4-12.3) fl Neut % (Auto) 56.8 (34.0-67.9) % Lymph % (Auto) 24.7 (21.8-53.1) % [place] % (Auto) 12.8 H (5.3-12.2) % Eos % (Auto) 5.0 (0.8-7.0) Baso % (Auto) 0.5 (0.1-1.2) % Neut # (Auto) 3.19 (1.78-5.38) K/mm3 Lymph # (Auto) 1.39 (1.32-3.57) K/mm3 [place] # (Auto) 0.72 (0.30-0.82) K/mm3 Eos # (Auto) 0.28 (0.04-0.54) K/mm3 Baso # (Auto) 0.03 (0.01-0.08) K/mm3 PT (9.5-12.1) SECONDS INR APTT (24-31) SECONDS Sodium (136-145) mEq/L Potassium (3.5-5.1) mEq/L Chloride (98-107) mEq/L Carbon Dioxide (21-32) mEq/L Anion Gap (5-15) BUN (7-18) mg/dL Creatinine (0.7-1.3) mg/dL Est Cr Clr Drug Dosing mL/min Estimated GFR (MDRD) (>60) mL/min BUN/Creatinine Ratio (14-18) Glucose (80-115) mg/dL POC Glucose 262 H (80-115) mg/dL Hemoglobin A1c (4.50-6.20) % Calcium (8.5-10.1) mg/dL Phosphorus 4.2 (2.6-4.7) mg/dL Magnesium 1.4 L (1.8-2.4) mg/dl Total Bilirubin (0.2-1.0) mg/dL AST (15-37) U/L ALT (16-63) U/L Alkaline Phosphatase (46-116) U/L Creatine Kinase (39-308) U/L Troponin I (0.00-0.056) ng/mL Total Protein (6.4-8.2) g/dl Albumin (3.4-5.0) g/dl Globulin gm/dL Albumin/Globulin Ratio (1-2) Triglycerides (<150) mg/dL Cholesterol (<200) mg/dL LDL Cholesterol Direct (<100) mg/dL HDL Cholesterol (40-59) mg/dL Urine Color (Yellow) Urine Appearance (Clear) Urine pH (5.0-8.0) Ur Specific [place] (1.005-1.030) Urine Protein (Negative) Urine Glucose (UA) (Negative) Urine Ketones (Negative) Urine Occult Blood (Negative) Urine Nitrite (Negative) Urine Bilirubin (Negative) Urine Urobilinogen (0.2-1.0) Ur Leukocyte Esterase (Negative) Urine RBC (0-5) /hpf Urine WBC (0-5) /hpf Ur Squamous Epith Cells (0-5) /hpf Urine Bacteria (FEW) /hpf Urine Mucus (FEW) /hpf 10/29/18 10/29/18 10/29/18 Range/Units 05:39 05:39 05:39 WBC (4.23-9.07) K/mm3 RBC (4.63-6.08) M/mm3 Hgb (13.7-17.5) gm/L Hct (40.1-51.0) % MCV (79.0-92.2) fl MCH (25.7-32.2) pg MCHC (32.2-35.5) g/dl RDW Std Deviation (35.1-43.9) fL Plt Count (163-337) K/mm3 MPV (9.4-12.3) fl Neut % (Auto) (34.0-67.9) % Lymph % (Auto) (21.8-53.1) % [place] % (Auto) (5.3-12.2) % Eos % (Auto) (0.8-7.0) Baso % (Auto) (0.1-1.2) % Neut # (Auto) (1.78-5.38) K/mm3 Lymph # (Auto) (1.32-3.57) K/mm3 [place] # (Auto) (0.30-0.82) K/mm3 Eos # (Auto) (0.04-0.54) K/mm3 Baso # (Auto) (0.01-0.08) K/mm3 PT 10.9 (9.5-12.1) SECONDS INR 1.00 APTT 29 (24-31) SECONDS Sodium 136 (136-145) mEq/L Potassium 4.8 (3.5-5.1) mEq/L Chloride 102 (98-107) mEq/L Carbon Dioxide 29 (21-32) mEq/L Anion Gap 9.8 (5-15) BUN 21 H (7-18) mg/dL Creatinine 1.3 (0.7-1.3) mg/dL Est Cr Clr Drug Dosing 58.03 mL/min Estimated GFR (MDRD) 55 (>60) mL/min BUN/Creatinine Ratio 16.2 (14-18) Glucose 241 H (80-115) mg/dL POC Glucose (80-115) mg/dL Hemoglobin A1c 9.20 H (4.50-6.20) % Calcium 8.7 (8.5-10.1) mg/dL Phosphorus (2.6-4.7) mg/dL Magnesium (1.8-2.4) mg/dl Total Bilirubin 0.5 (0.2-1.0) mg/dL AST 23 (15-37) U/L ALT 32 (16-63) U/L Alkaline Phosphatase 81 (46-116) U/L Creatine Kinase 348 H (39-308) U/L Troponin I < 0.017 (0.00-0.056) ng/mL Total Protein 7.2 (6.4-8.2) g/dl Albumin 3.2 L (3.4-5.0) g/dl Globulin 4.0 gm/dL Albumin/Globulin Ratio 0.8 L (1-2) Triglycerides 210 H (<150) mg/dL Cholesterol 120 (<200) mg/dL LDL Cholesterol Direct 73 (<100) mg/dL HDL Cholesterol 22.0 L (40-59) mg/dL Urine Color (Yellow) Urine Appearance (Clear) Urine pH (5.0-8.0) Ur Specific [place] (1.005-1.030) Urine Protein (Negative) Urine Glucose (UA) (Negative) Urine Ketones (Negative) Urine Occult Blood (Negative) Urine Nitrite (Negative) Urine Bilirubin (Negative) Urine Urobilinogen (0.2-1.0) Ur Leukocyte Esterase (Negative) Urine RBC (0-5) /hpf Urine WBC (0-5) /hpf Ur Squamous Epith Cells (0-5) /hpf Urine Bacteria (FEW) /hpf Urine Mucus (FEW) /hpf 10/29/18 Range/Units 10:47 WBC (4.23-9.07) K/mm3 RBC (4.63-6.08) M/mm3 Hgb (13.7-17.5) gm/L Hct (40.1-51.0) % MCV (79.0-92.2) fl MCH (25.7-32.2) pg MCHC (32.2-35.5) g/dl RDW Std Deviation (35.1-43.9) fL Plt Count (163-337) K/mm3 MPV (9.4-12.3) fl Neut % (Auto) (34.0-67.9) % Lymph % (Auto) (21.8-53.1) % [place] % (Auto) (5.3-12.2) % Eos % (Auto) (0.8-7.0) Baso % (Auto) (0.1-1.2) % Neut # (Auto) (1.78-5.38) K/mm3 Lymph # (Auto) (1.32-3.57) K/mm3 [place] # (Auto) (0.30-0.82) K/mm3 Eos # (Auto) (0.04-0.54) K/mm3 Baso # (Auto) (0.01-0.08) K/mm3 PT (9.5-12.1) SECONDS INR APTT (24-31) SECONDS Sodium (136-145) mEq/L Potassium (3.5-5.1) mEq/L Chloride (98-107) mEq/L Carbon Dioxide (21-32) mEq/L Anion Gap (5-15) BUN (7-18) mg/dL Creatinine (0.7-1.3) mg/dL Est Cr Clr Drug Dosing mL/min Estimated GFR (MDRD) (>60) mL/min BUN/Creatinine Ratio (14-18) Glucose (80-115) mg/dL POC Glucose 293 H (80-115) mg/dL Hemoglobin A1c (4.50-6.20) % Calcium (8.5-10.1) mg/dL Phosphorus (2.6-4.7) mg/dL Magnesium (1.8-2.4) mg/dl Total Bilirubin (0.2-1.0) mg/dL AST (15-37) U/L ALT (16-63) U/L Alkaline Phosphatase (46-116) U/L Creatine Kinase (39-308) U/L Troponin I (0.00-0.056) ng/mL Total Protein (6.4-8.2) g/dl Albumin (3.4-5.0) g/dl Globulin gm/dL Albumin/Globulin Ratio (1-2) Triglycerides (<150) mg/dL Cholesterol (<200) mg/dL LDL Cholesterol Direct (<100) mg/dL HDL Cholesterol (40-59) mg/dL Urine Color (Yellow) Urine Appearance (Clear) Urine pH (5.0-8.0) Ur Specific [place] (1.005-1.030) Urine Protein (Negative) Urine Glucose (UA) (Negative) Urine Ketones (Negative) Urine Occult Blood (Negative) Urine Nitrite (Negative) Urine Bilirubin (Negative) Urine Urobilinogen (0.2-1.0) Ur Leukocyte Esterase (Negative) Urine RBC (0-5) /hpf Urine WBC (0-5) /hpf Ur Squamous Epith Cells (0-5) /hpf Urine Bacteria (FEW) /hpf Urine Mucus (FEW) /hpf Med Orders - Current: Current Medications Aspirin (Aspirin) 162 mg PO DAILY [facility] Last Admin: 10/29/18 08:07 Dose: 162 mg Clopidogrel Bisulfate (Plavix) 75 mg PO DAILY [facility] Last Admin: 10/29/18 08:12 Dose: 75 mg Enoxaparin Sodium (Lovenox) 40 mg SUBCUT Q24H [facility] Last Admin: 10/28/18 17:23 Dose: 40 mg Folic Acid (Folic Acid) 1 mg PO DAILY [facility] Insulin Human Lispro (Humalog) 0 unit SUBCUT QIDACANDBED [facility]; Protocol Last Admin: 10/29/18 10:57 Dose: 6 units Patient Own (Lisinopril 40 Mg) 0 each PO DAILY [facility] Last Admin: 10/29/18 08:08 Dose: 1 each Patients Own (Amlodipine 10mg) 0 each PO DAILY [facility] Last Admin: 10/29/18 08:08 Dose: 0.5 each Patients Own (Atorvastatin 20mg) 0 each PO DAILY [facility] Last Admin: 10/29/18 08:09 Dose: 1 each Non-Formulary Medication (Ceramides 1,3,6-11 [Cerave]) 340 gm TP BID [facility] Non-Formulary Medication (Magnesium Citrate [Magnesium Citrate]) 100 mg PO DAILY [facility] Non-Formulary Medication (Omeprazole [Omeprazole]) 20 mg PO DAILY [facility] Sodium Chloride (Saline Flush) 10 ml FLUSH ASDIRECTED PRN PRN Reason: Keep Vein Open Discontinued Medications Amlodipine Besylate (Norvasc) 10 mg PO DAILY [facility] Amlodipine Besylate (Norvasc) 5 mg PO DAILY [facility] Aspirin (Aspirin) 324 mg PO ONETIME ONE Stop: 10/28/18 11:18 Last Admin: 10/28/18 11:22 Dose: 324 mg Sodium Chloride (Normal Saline) 500 mls @ 999 mls/hr IV .BOLUS ONE Stop: 10/28/18 12:30 Last Admin: 10/28/18 12:09 Dose: 999 mls/hr Sodium Chloride (Normal Saline) 1,000 mls @ 125 mls/hr IV ASDIRECTED [facility] Sodium Chloride (Normal Saline) 100 mls @ 75 mls/hr IV ASDIRECTED [facility] Last Admin: 10/28/18 13:50 Dose: 75 mls/hr Magnesium Sulfate 4 gm/ Premix 50 mls @ 12.5 mls/hr IV ONETIME ONE Stop: 10/29/18 13:29 Last Admin: 10/29/18 09:34 Dose: 12.5 mls/hr Iohexol (Omnipaque-300) 100 ml IVPUSH ONETIME ONE Stop: 10/28/18 12:27 Last Admin: 10/28/18 13:49 Dose: 100 ml Lisinopril (Prinivil) 40 mg PO DAILY [facility] Simvastatin (Zocor) 20 mg PO DAILY [facility] Sodium Chloride (Saline Flush) 10 ml FLUSH ONETIME PRN PRN Reason: IV FLUSH Last Admin: 10/28/18 13:49 Dose: 10 ml - Exam General: Reports: Alert, Oriented HEENT: Reports: Pupils Equal, Pupils Reactive Neck: Reports: Supple Lungs: Reports: Clear to Auscultation, Normal Respiratory Effort Cardiovascular: Reports: Regular Rate, Regular Rhythm GI/Abdominal Exam: Normal Bowel Sounds, Soft, Non-Tender, No Organomegaly, No Distention Extremities: Normal Inspection, Normal Range of Motion, No Pedal Edema Neurological: Reports: No New Focal Deficit, Normal Gait, Normal Tone, Strength Equal Bilateral, Cranial Nerves Intact Psy/Mental Status: Reports: Alert, Normal Affect
[2018-10-29] MEDS ORDERED: CERAMIDES TP SCH (21:00)
[2018-10-30] MEDS ORDERED: Folic Acid 1 MG Tab PO SCH (09:00)
[2018-10-30] MEDS ORDERED: Non-Formulary Medication 1 Each (Omeprazole [Omeprazole] 20 MG) PO SCH (09:00)
== END 2018-10-29 15:10 | disposition home or self-care (01) ==
LOC: JD.ED 10:37 → JD.MS 14:35
PROVIDERS: ADMIT Internal Medicine; ATTEND Internal Medicine
DX: I65.01 Occlusion and stenosis of right vertebral artery (principal); I66.01 Occlusion and stenosis of right middle cerebral artery; I10 Essential (primary) hypertension; E11.9 Type 2 diabetes mellitus without complications; Z82.3 Family history of stroke; Z79.4 Long term (current) use of insulin; Z79.899 Other long term (current) drug therapy
CPT/HCPCS: 36415; 70450; 70450-26; 70496; 70496-26; 70498; 70498-26; 70551; 70551-26; 71046; 71046-26; 80053; 80061; 81001; 82550; 82962; 83036; 83735; 84100; 84484; 85007; 85025; 85027; 85610; 85652; 85730; 86140; 93005; 93010; 93306; 93880; 93880-26; 94760; 96360; 96361; 96365; 96366; 96372; 97161-GP; 99284; 99285-25; A9270-GY; G0378; J1650; J1815-GY; J3475; J7030; J7040; Q9967

== ENCOUNTER 2024-06-21 14:33 | Emergency (ER) | payer MEDICARE, BC ==
[2024-06-21 14:43] VITALS: BP 175/86; PULSE 90
== END 2024-06-21 15:20 | disposition left against medical advice (07) ==
LOC: JD.ED 14:33
DX: Z53.21 Procedure and treatment not carried out due to patient leaving prior to being seen by health care provider (principal)